=== PATIENT | female | born 1955 | race Caucasian/White ===

== ENCOUNTER → 2017-09-03 | Outpatient (CLI) | payer BC | END | disposition home or self-care (01) | LOC: CFH 09:48 | PROVIDERS: ATTEND Psychiatry & Neurology Neurology | DX: M25.551 Pain in right hip (principal); M25.552 Pain in left hip; G89.29 Other chronic pain | CPT/HCPCS: 73523 ==

== ENCOUNTER 2018-04-17 20:17 | Emergency (ER) | payer BC ==
[~2018-04-17] VITALS: Ht 162.6 cm; Wt 72.3 kg
[2018-04-17] MEDS ORDERED: ONDANSETRON 2MG/ML, 2ML IVPush ONE (21:00)
[2018-04-17] MEDS ORDERED: MORPHINE SULFATE 4 MG/ML, 1ML IVPush PRN (21:00)
[2018-04-17] MEDS ORDERED: SODIUM CHLORIDE FLUSH 10ML SYR IVF ONE (21:00)
[2018-04-17] MEDS ORDERED: methylPREDNISolone SOD SUCC 125 MG/2 ML IVPush ONE (21:00)
[2018-04-17] MEDS ORDERED: methylPREDNISolone SOD SUCC 125 MG/2 ML ONE (21:04)
[2018-04-17] MEDS ORDERED: MORPHINE SULFATE 4 MG/ML, 1ML ONE (21:04)
[2018-04-17] MEDS ORDERED: ONDANSETRON 2MG/ML, 2ML ONE (21:04)
[2018-04-17 21:09] LABS: BASOPHILS # (AUTO) 0.01 x10^3/uL (0-0.1); BASOPHILS % (AUTO) 0 % (0-1); EOSINOPHILS # (AUTO) 0.01 x10^3/uL (0-0.4); EOSINOPHILS % (AUTO) 0 % (1-7); LYMPHOCYTES # (AUTO) 1.48 x10^3/uL (1-3.4); LYMPHOCYTES % (AUTO) 20 % (22-44); MD NO; MEAN CORPUSCULAR HEMOGLOBIN 30.7 pg (27.0-34.8); MEAN CORPUSCULAR HGB CONC 34.1 g/dL (32.4-35.8); MONOCYTES # (AUTO) 0.04 x10^3/uL (0.2-0.8); MONOCYTES % (AUTO) 1 % (2-9); NEUTROPHILS # (AUTO) 5.84 x10^3/uL (1.8-6.8); NEUTROPHILS % (AUTO) 79 % (42-75); PLATELET COUNT 249 x10^3/uL (130-400); RED BLOOD COUNT 4.58 x10^6/uL (3.82-5.3); RED CELL DISTRIBUTION WIDTH 13.6 % (9.6-15.2)
[2018-04-17 21:19] LABS: ALANINE AMINOTRANSFERASE 76 U/L (12-78); ANION GAP 9 mmol/L (5-15); CALCIUM 9.1 mg/dL (8.5-10.1); CHLORIDE 108 mmol/L (98-107); CREATININE 0.93 mg/dL (0.55-1.02)
[2018-04-17 21:23] LABS: ALKALINE PHOSPHATASE 157 U/L (45-117); BILIRUBIN,TOTAL 1.3 mg/dL (0.2-1.0); INTERNATIONAL NORMALIZED RATIO 0.96 (0.93-1.1); TOTAL PROTEIN 7.8 g/dL (6.4-8.2); TROPONIN I < 0.015 ng/mL (0.000-0.045)
[2018-04-17 23:35] VITALS: BP 125/81
== END 2018-04-17 23:37 | disposition home or self-care (01) ==
LOC: ED 23:24
DX: G35 Multiple sclerosis (principal); R79.1 Abnormal coagulation profile
CPT/HCPCS: 36415; 80053; 84484; 85025; 85610; 85730; 93005; 96365; 96375; 99285; J2405; J2930